=== PATIENT | female | born 1930 | race Caucasian/White ===

== ENCOUNTER 2019-01-29 20:57 | Inpatient (IN) | payer MEDICARE, OTHER ==
[~2019-01-29] VITALS: Ht 152.4 cm; Wt 75.7 kg
--- NOTE | 2019-01-29 21:10 | NUR ---
PT BIBRA COMPLAINING OF SOB/CHEST PAIN. PT HAS HX OF PANCREATIC CANCER AND RECIEVED AN OXYCODONE AROUND 1700. PT AXO4. RESPIRATIONS EVEN AND UNLABORED. PT STATES BEING DYPNIC AND POINTING AT CHEST SAYING, "PAIN." PT PUT ON THE MOLD UNLOADER AND PULSE OX. FAMILY AT BEDSIDE.
--- NOTE | 2019-01-29 21:50 | NUR ---
VENETIAN BLIND CLEANER AT BEDSIDE. LABS SENT.
[2019-01-29] MEDS ORDERED: ONDANSETRON HCL/PF 4 MG/2 ML VIAL IVP ONE (22:00)
[2019-01-29] MEDS ORDERED: KETOROLAC TROMETHAMINE INJ 30 MG/ML VIAL IV ONE (22:00)
[2019-01-29] MEDS ORDERED: IV NS 0.9% 500 ML BAG IV ONE (22:00)
--- NOTE | 2019-01-29 22:00 | NUR ---
XRAY AT BEDSIDE.
[2019-01-29] MEDS ORDERED: KETOROLAC TROMETHAMINE 15 MG/ML VIAL ONE (22:14)
[2019-01-29] MEDS ORDERED: ONDANSETRON HCL/PF 4 MG/2 ML VIAL ONE ×2 (22:14→22:53)
[2019-01-29 22:17] LABS: BASOPHILS # (AUTO) 0.1 /CMM (0.0-0.2); BASOPHILS % (AUTO) 0.8 % (0.0-2.0); EOSINOPHILS % (AUTO) 1.6 % (0.0-6.0); HEMATOCRIT 31 % (33-45); HEMOGLOBIN 9.6 g/dL (11.5-14.8); LYMPHOCYTES # (AUTO) 1.5 /CMM (0.8-4.8); LYMPHOCYTES % (AUTO) 13.3 % (20.0-44.0); MEAN CORPUSCULAR HGB CONC 31 g/dl (31.0-36.0); MEAN CORPUSCULAR VOLUME 79 fL (82-100); MONOCYTES # (AUTO) 0.8 /CMM (0.1-1.30); MONOCYTES % (AUTO) 7.1 % (2.0-12.0); NEUTROPHILS # (AUTO) 8.8 /CMM (1.8-8.9); NEUTROPHILS % (AUTO) 77.2 % (43.0-81.0); PLATELET COUNT (AUTO) 665 /CMM (150-450); RED BLOOD CELL COUNT(AUTO) 3.88 MIL/uL (4.0-5.2); WHITE BLOOD COUNT (AUTO) 11.4 K/uL (4.3-11.0)
[2019-01-29 22:34] LABS: CALCIUM, SERUM 8.5 mg/dL (8.5-10.1); CARBON DIOXIDE 19 mmol/L (21-32); CHLORIDE 99 mmol/L (98-107); CREATININE 1.4 mg/dL (0.6-1.3); GLUCOSE 111 mg/dL (74-106); POTASSIUM 5.1 mmol/L (3.5-5.1); SODIUM SERUM 131 mmol/L (136-145); UREA NITROGEN, BLOOD 36 mg/dL (7-18)
[2019-01-29 22:42] LABS: ALANINE AMINOTRANSFERASE 17 U/L (12-78); ALBUMIN 2.1 g/dL (3.4-5.0); ALKALINE PHOSPHATASE 76 U/L (46-116); ASPARTATE AMINOTRANSFERASE 110 U/L (15-37); BILIRUBIN,DIRECT 0.1 mg/dL (0.0-0.2); BILIRUBIN,TOTAL 0.3 mg/dL (0.2-1.0); LIPASE 94 U/L (73-393); TOTAL PROTEIN, SERUM 6.7 g/dL (6.4-8.2)
[2019-01-29] MEDS ORDERED: MORPHINE SULFATE INJ 4 MG/ML DISP.SYRIN ONE (22:54)
[2019-01-29] MEDS ORDERED: ONDANSETRON HCL/PF 4 MG/2 ML VIAL IV ONE (23:00)
[2019-01-29] MEDS ORDERED: MORPHINE SULFATE INJ 2 MG/ML DISP.SYRIN IV ONE (23:00)
--- NOTE | 2019-01-29 23:01 | NUR ---
PT TAKEN TO CT.
[2019-01-29] MEDS ORDERED: IOHEXOL-350 100 ML VIAL IV ONE (23:02)
--- NOTE | 2019-01-29 23:22 | NUR ---
PT RETURNED FROM CT.
--- NOTE | 2019-01-29 23:58 | NUR ---
PT RESTING IN BED COMFORTABLY, NAD NOTED. WILL CONTINUE TO MONITOR.
[2019-01-30 00:21] LABS: APPEARANCE,URINE CLEAR (CLEAR); BILIRUBIN,URINE NEGATIVE (NEGATIVE); BLOOD, URINE NEGATIVE Ery/uL (NEGATIVE); COLOR,URINE YELLOW (YELLOW); KETONES,URINE NEGATIVE (NEGATIVE); LEUKOCYTE ESTERASE ,URINE NEGATIVE (NEGATIVE); NITRITE, URINE NEGATIVE (NEGATIVE); PH,URINE 5.5 (5.0-8.0); PROTEIN,URINE NEGATIVE (NEGATIVE); UGLUCOSE NEGATIVE (NEGATIVE); UROBILINOGEN,URINE 0.2 EU/dL (0.2)
--- NOTE | 2019-01-30 00:35 | NUR ---
REPORT GIVEN TO ALICE ROMAN FOR TRISH.
[2019-01-30] MEDS ORDERED: OMEP20CA10 PO (00:49)
[2019-01-30] MEDS ORDERED: CEPH500C2 PO (00:49)
[2019-01-30] MEDS ORDERED: LOSA100T31 PO (00:49)
[2019-01-30] MEDS ORDERED: ASPI-1169 PO (00:49)
[2019-01-30] MEDS ORDERED: CLON0.1T PO (00:49)
[2019-01-30] MEDS ORDERED: Z GUARD REMEDY 2 OZ OINT TP PRN (01:00)
[2019-01-30 01:09] VITALS: BP 114/62
--- NOTE | 2019-01-30 02:09 | NUR ---
ADMISSION. RECEIVED THE PT FROM ER VIA GURNEY . PT IS AWAKE, FOLLOW COMMANDS. FOOD SPECIALIST SHOWING NSR, IV RT HAND 20G. SALINE LOCK. HOB ELEVATED. AFEBRILE. OXYGEN 2L VIA NASAL CANNULA. SAT 96%, NO ACUTE DISTRESS NOTED.
[2019-01-30] MEDS: IV NS 0.9% 1,000 ML IV PRN ×2 (02:17→21:48)
[2019-01-30 04:00] VITALS: BP_SYST 113; BP_SYST 118; BP_DIAS 56; BP_DIAS 58
[2019-01-30 06:10] LABS: CARBON DIOXIDE 22 mmol/L (21-32); CHLORIDE 105 mmol/L (98-107); CREATININE 1.2 mg/dL (0.6-1.3); GLUCOSE 81 mg/dL (74-106); POTASSIUM 4.9 mmol/L (3.5-5.1); SODIUM SERUM 137 mmol/L (136-145); UREA NITROGEN, BLOOD 35 mg/dL (7-18)
[2019-01-30 06:15] LABS: BASOPHILS # (AUTO) 0.1 /CMM (0.0-0.2); BASOPHILS % (AUTO) 0.7 % (0.0-2.0); EOSINOPHILS % (AUTO) 1.8 % (0.0-6.0); HEMATOCRIT 26 % (33-45); HEMOGLOBIN 8.2 g/dL (11.5-14.8); LYMPHOCYTES # (AUTO) 1.2 /CMM (0.8-4.8); LYMPHOCYTES % (AUTO) 15.1 % (20.0-44.0); MEAN CORPUSCULAR HGB CONC 32 g/dl (31.0-36.0); MEAN CORPUSCULAR VOLUME 79 fL (82-100); MONOCYTES # (AUTO) 0.7 /CMM (0.1-1.30); MONOCYTES % (AUTO) 8.5 % (2.0-12.0); NEUTROPHILS % (AUTO) 73.9 % (43.0-81.0); PLATELET COUNT (AUTO) 562 /CMM (150-450); RED BLOOD CELL COUNT(AUTO) 3.28 MIL/uL (4.0-5.2); WHITE BLOOD COUNT (AUTO) 8.2 K/uL (4.3-11.0)
[2019-01-30 06:16] LABS: ALANINE AMINOTRANSFERASE 14 U/L (12-78); ALBUMIN 1.8 g/dL (3.4-5.0); ALKALINE PHOSPHATASE 64 U/L (46-116); ASPARTATE AMINOTRANSFERASE 98 U/L (15-37); BILIRUBIN,DIRECT 0.1 mg/dL (0.0-0.2); BILIRUBIN,TOTAL 0.3 mg/dL (0.2-1.0); TOTAL PROTEIN, SERUM 5.8 g/dL (6.4-8.2)
[2019-01-30 07:24] LABS: CHOLESTEROL 126 mg/dL (<200); HDL CHOLESTEROL 12 mg/dL (40-60); LDL 82 mg/dL (0-99); THYROID STIMULATING HORMONE 1.729 uIU/mL (0.358-3.74); TRIGLYCERIDES 189 mg/dL (30-150)
[2019-01-30 08:00] VITALS: BP 123/63
[2019-01-30] MEDS ORDERED: SENN-168 PO (08:00)
[2019-01-30] MEDS ORDERED: HYDR-4076 PO (08:00)
[2019-01-30] MEDS ORDERED: DICL100G16 TP (08:00)
[2019-01-30] MEDS ORDERED: MAGN400O6 PO (08:00)
[2019-01-30] MEDS ORDERED: HYDR-4384 PO (08:00)
[2019-01-30] MEDS ORDERED: NITR0.4T48 SL (08:00)
[2019-01-30] MEDS ORDERED: FENO145T35 PO (08:00)
[2019-01-30] MEDS ORDERED: FERR325T23 PO (08:00)
[2019-01-30] MEDS ORDERED: ACET-868 PO (08:00)
[2019-01-30] MEDS ORDERED: LACT-58 PO (08:00)
[2019-01-30] MEDS ORDERED: CLON1PAT TD (08:00)
[2019-01-30] MEDS ORDERED: OXYC10TA59 PO (08:00)
[2019-01-30] MEDS ORDERED: NIFE60TA83 PO (08:00)
[2019-01-30] MEDS ORDERED: SIME80TA15 PO (08:00)
[2019-01-30] MEDS ORDERED: ACID1TAB12 PO (08:00)
[2019-01-30] MEDS ORDERED: BISA10SU8 RC (08:00)
[2019-01-30] MEDS ORDERED: EPOE1VIA7 SQ (08:00)
[2019-01-30] MEDS ORDERED: METO25TA20 PO (08:00)
[2019-01-30] MEDS ORDERED: TEMA7.5C PO (08:00)
[2019-01-30] MEDS ORDERED: MAGN400T26 PO (08:00)
[2019-01-30] MEDS: HYDROCODONE/APAP 5/325MG 1 EACH TABLET PO PRN ×3 (10:00→21:46)
[2019-01-30 16:00] VITALS: BP 117/53
[2019-01-30 20:00] VITALS: BP 153/64
--- NOTE | 2019-01-30 20:00 | NUR ---
RN INITIAL NOTES RECEIVED PT RESTING IN BED AWAKE, FOLLOW COMMANDS. PT A&OX2-3. PT SPEAKS PARAGUAYAN. IV RT HAND 20G WITH 0.9 NS @50. HOB ELEVATED. PT ON OXYGEN 2L VIA NASAL CANNULA. SAT 96%, NO ACUTE DISTRESS NOTED. FAMILY AT BED SIDE. WILL CONT TO MONITOR.
[2019-01-30] MEDS: MAG HYDROX/AL HYDROX/SIMETH 30 ML UDC PO PRN (21:47)
[2019-01-30] MEDS: MAGNESIUM HYDROXIDE 30 ML UDC PO PRN (23:34)
[2019-01-31 04:00] VITALS: BP 157/80
[2019-01-31] MEDS: HYDROCODONE/APAP 5/325MG 1 EACH TABLET PO PRN ×4 (04:05→20:32)
--- NOTE | 2019-01-31 06:26 | NUR ---
RN CLOSING NOTES NO CHANGE IN PTS CONDITION OVER NIGHT. PT RESTING IN BED AWAKE, FOLLOW COMMANDS. PT A&OX2-3. PT SPEAKS TAJIK. IV RT HAND 20G WITH 0.9 NS @50. HOB ELEVATED. PT ON OXYGEN 2L VIA NASAL CANNULA. SAT 96%, NO ACUTE DISTRESS NOTED. WILL ENDORSE TO AM RN.
[2019-01-31 06:27] LABS: BASOPHILS # (AUTO) 0.1 /CMM (0.0-0.2); EOSINOPHILS % (AUTO) 3.1 % (0.0-6.0); HEMATOCRIT 24 % (33-45); HEMOGLOBIN 7.9 g/dL (11.5-14.8); LYMPHOCYTES % (AUTO) 11.9 % (20.0-44.0); MEAN CORPUSCULAR HGB CONC 32 g/dl (31.0-36.0); MEAN CORPUSCULAR VOLUME 79 fL (82-100); MONOCYTES # (AUTO) 0.8 /CMM (0.1-1.30); MONOCYTES % (AUTO) 9.1 % (2.0-12.0); NEUTROPHILS # (AUTO) 6.4 /CMM (1.8-8.9); NEUTROPHILS % (AUTO) 74.9 % (43.0-81.0); PLATELET COUNT (AUTO) 527 /CMM (150-450); WHITE BLOOD COUNT (AUTO) 8.5 K/uL (4.3-11.0)
[2019-01-31 07:03] LABS: CALCIUM, SERUM 8.1 mg/dL (8.5-10.1); CARBON DIOXIDE 22 mmol/L (21-32); CHLORIDE 105 mmol/L (98-107); CREATININE 1.2 mg/dL (0.6-1.3); GLUCOSE 84 mg/dL (74-106); MAGNESIUM 2.2 mg/dL (1.8-2.4); PHOSPHORUS 3.8 mg/dL (2.5-4.9); POTASSIUM 4.8 mmol/L (3.5-5.1); SODIUM SERUM 139 mmol/L (136-145); UREA NITROGEN, BLOOD 30 mg/dL (7-18)
[2019-01-31 08:00] VITALS: BP 160/71
--- NOTE | 2019-01-31 08:00 | NUR ---
MS1/RN AM SHIFT INITIAL NOTES RECEIVED PT AWAKE SITTING IN BED. PT A/O 2-3 SWEDISH SPEAKING, THROUGH AN PYRIDINE OPERATOR PT COMPLAINING OF GENERALIZED PAIN RATED 9/10 WILL GIVE PAIN MEDICATION ORDERED. PT ON 2L O2 VIA N/C SATURATING @ 98%, LUNG SOUNDS CLEAR, RESPIRATIONS EVEN AND UNLABORED. WITH ON GOING IV INFUSION OF NS @ 50CC/HR, IV SITE PATENT WITH NO S/S OF INFECTION. SCHEDULED AM MEDS TO BE GIVEN. CL WITHIN REACHED AND SAFETY MAINTAINED. ON GOING MONITORING.
[2019-01-31] MEDS: MAGNESIUM HYDROXIDE 30 ML UDC PO PRN ×2 (09:41→20:41)
--- NOTE | 2019-01-31 10:11 | NUR ---
MS1/RN ROUNDS - DR. ESTEBAN UPDATED PT'S CONDITION. PT SEEN & EXAMINED BY DR. ESTEBAN, WITH VERBAL ORDERS FOR PRN CONSTIPATION. MIRALAX AND DULCOLAX. NOTED AND CARRIED. ON GOING MONITORING.
[2019-01-31] MEDS ORDERED: POLYETHYLENE GLYCOL 3350 17 GM POWD.PACK PO PRN (10:30)
[2019-01-31] MEDS: BISACODYL SUPP (10 MG) 10 MG/SUPP.RECT SUPP.RECT RC PRN (10:48)
[2019-01-31] MEDS: AMLODIPINE BESYLATE 5 MG TABLET PO SCH (13:09)
[2019-01-31 16:00] VITALS: BP 164/70
--- NOTE | 2019-01-31 17:00 | NUR ---
MS1/RN PM ROUNDS PM CARE PROVIDED. NO CHANGE OF CONDITION. MONITORING.
[2019-01-31] MEDS: IV NS 0.9% 1,000 ML IV PRN (17:16)
[2019-01-31] MEDS: SIMETHICONE 80 MG TAB.CHEW PO PRN (17:18)
[2019-01-31] MEDS: ENSURE ENLIVE 237 ML LIQUID (VANILLA) PO SCH (18:49)
--- NOTE | 2019-01-31 19:20 | NUR ---
RN M/S NOTE PT IS RESTING IN BED AOX2-3, SPEECH CLEAR, ON 2L O2 VIA NC, NO S/SX OF RESPIRATORY OR CARDIAC DISTRESS, RIGHT HAND#20G WITH NS AT 50ML/HR, SITE IS CLEAN AND DRY, DRESSING INTACT, PATENT FLUSHING WELL, SAFETY MAINTAINED AT ALL TIMES, BED IN LOW LOCKED POSITION, CALL LIGHT WITHIN REACH, WILL CONTINUE TO MONITOR FOR ANY ACUTE CHANGES.
--- NOTE | 2019-01-31 19:55 | NUR ---
MS1/RN AM SHIFT END NOTES ALL NEEDS MET. NO ACUTE CHANGE OF CONDITION NOTED DURING THE SHIFT. PT ENDORSED TO PM NURSE TO CONTINUE CARE. ALSO ENDORSED TO GIVE PRN NORCO AND SIMETHICONE WHEN DUE PER FAMILY REQUEST. CL WITHIN REACHED AND SAFETY MAINTAINED.
[2019-01-31 20:00] VITALS: BP 150/62
[2019-01-31] MEDS: MAG HYDROX/AL HYDROX/SIMETH 30 ML UDC PO PRN (20:41)
[2019-01-31] MEDS ORDERED: MORPHINE SULFATE INJ 2 MG/ML DISP.SYRIN IV ONE (21:05)
--- NOTE | 2019-01-31 21:05 | NUR ---
RN M/S NOTE PATIENT IS C/O ABDOMINAL PAIN, CALL TO DR WEST FOR PAIN MED ORDER PER FAMILY REQUEST OF MORPHINE, NEW ORDER FOR MORPHINE 2MG IV ONE TIME ONLY
[2019-01-31] MEDS ORDERED: HYDROMORPHONE 1 MG/1 ML DISP.SYRIN IV ONE (23:40)
--- NOTE | 2019-01-31 23:41 | NUR ---
RN M/S NOTE PT CONTINUES TO COMPLAIN OF ABDOMINAL PAIN CALL TO DR WEST FOR PAIN MED ORDER, NEW ORDER FOR DILAUDID 1MG IV ONE TIME, WILL CONTINUE TO MONITOR.
[2019-02-01] MEDS: HYDROCODONE/APAP 5/325MG 1 EACH TABLET PO PRN ×2 (01:36→05:34)
[2019-02-01] MEDS: ACETAMINOPHEN 325 MG TABLET PO PRN ×2 (02:33→11:56)
[2019-02-01 04:00] VITALS: BP 120/42
[2019-02-01] MEDS: SIMETHICONE 80 MG TAB.CHEW PO PRN ×3 (04:21→18:05)
[2019-02-01] MEDS: ONDANSETRON HCL/PF 4 MG/2 ML VIAL IVP PRN ×2 (04:21→20:09)
--- NOTE | 2019-02-01 05:38 | NUR ---
PT STILL COMPLAINS OF ABDOMINAL PAIN WITH NO RELIEF PAIN AFTER MEDICATION ORDERED. SPOKE TO JIMMY WEST HYDRO STATION SUPERVISOR, WITH ORDER TO CHANGE NORCO 5/325 PO TO NORCO 10/325 PO PRN Q4HRS FOR PAIN . DAUGHTER MADE AWARE.
[2019-02-01] MEDS: HYDROCODONE/APAP 10/325MG 1 EA TABLET PO PRN ×5 (05:53→18:49)
[2019-02-01 08:00] VITALS: BP 131/67
--- NOTE | 2019-02-01 08:00 | NUR ---
MS1/RN AM SHIFT INITIAL NOTES RECEIVED PT ASLEEP SITTING IN BED, AROUSEABLE. PT A/O 2-3 CITIZEN OF [place] SPEAKING, NO COMPLAINT OF PAIN AT THIS TIME. ON 2L O2 VIA N/C SATURATING @ 97%. RESPIRATIONS EVEN & UNLABORED, LUNG SOUNDS CLEAR. WITH ON GOING IV INFUSION OF NS @ 50CC/HR, IV SITE PATENT WITH NO S/S OF INFECTION. SCHEDULED AM MEDS TO BE GIVEN. CL WITHIN REACHED AND SAFETY MAINTAINED. ON GOING MONITORING.
[2019-02-01] MEDS: ENSURE ENLIVE 237 ML LIQUID (VANILLA) PO SCH ×3 (08:10→18:23)
[2019-02-01] MEDS: AMLODIPINE BESYLATE 5 MG TABLET PO SCH (08:14)
[2019-02-01] MEDS: BISACODYL SUPP (10 MG) 10 MG/SUPP.RECT SUPP.RECT RC PRN (10:12)
[2019-02-01] MEDS: MAGNESIUM HYDROXIDE 30 ML UDC PO PRN (10:12)
[2019-02-01] MEDS ORDERED: NITROGLYCERIN 0.4 MG/TAB BOTTLE SL PRN (15:00)
[2019-02-01] MEDS ORDERED: SIMETHICONE 80 MG TAB.CHEW PO PRN (15:00)
[2019-02-01] MEDS ORDERED: BISACODYL SUPP (10 MG) 10 MG/SUPP.RECT SUPP.RECT RC PRN (15:00)
[2019-02-01 16:00] VITALS: BP 135/60
--- NOTE | 2019-02-01 16:00 | NUR ---
MS1/RN ROUNDS - [facility] UPDATED PT'S CONDITION, PT SEEN & EXAMINED BY DR. CANALES, NO NEW ORDER RECEIVED AT THIS TIME. MONITORING.
[2019-02-01] MEDS: IV NS 0.9% 1,000 ML IV PRN (16:11)
[2019-02-01] MEDS: FERROUS SULFATE (325 MG) 325 MG/TAB TABLET PO SCH (16:57)
[2019-02-01] MEDS: hydrALAZINE HCL 25 MG TABLET PO SCH (16:57)
[2019-02-01] MEDS: METOPROLOL TARTRATE 25 MG TABLET PO SCH (16:57)
[2019-02-01] MEDS: SENNOSIDES 8.6 MG TABLET PO SCH (16:57)
--- NOTE | 2019-02-01 18:49 | NUR ---
MS1/RN NORCO - 2X PT GIVEN ANOTHER DOSE OF PRN NORCO. PT VOMITED THE PREVIOUS MEDICATION, PHARMACY MADE AWARE.
--- NOTE | 2019-02-01 19:00 | NUR ---
RN M/S NOTE PT IS RESTING WITH HOB ELEVATED, IN BED AOX2-3, SPEECH CLEAR, ON 2L O2 VIA NC, NO S/SX OF RESPIRATORY OR CARDIAC DISTRESS, RIGHT HAND#20G WITH NS AT 50ML/HR, SITE IS CLEAN AND DRY, DRESSING INTACT, PATENT FLUSHING WELL, SAFETY MAINTAINED AT ALL TIMES, BED IN LOW LOCKED POSITION, CALL LIGHT WITHIN REACH, WILL CONTINUE TO MONITOR FOR ANY ACUTE CHANGES.
--- NOTE | 2019-02-01 19:50 | NUR ---
MS1/RN FENTANYL FORM SPOKE TO DR. CANALES VIA PHONE NOTIFIED HIM THAT A FENTANYL FORM IS NEEDED TO BE COMPLETED PER PHARMACY TO RELEASE THE MEDICATION. DR. CANALES IS ON LOCATION WHERE THE FORM CANNOT BE FAXED, BUT INFORMED ME THAT HE WILL BE IN HIS [facility] OFFICE TOMORROW. [facility] DIRECT PHOHE NUMBER AND FAX NUMBER GIVEN TO , MD WILL CONTACT THE [facility] TO INFORM US OF THE FAX NUMBER TO WHERE THE FORM COULD BE FAXED, COMPLETED AND RETURNED FOR PROCESSING. CHARGE NURSES (AM & PM) MADE AWARE, WELL BRUCE FROM PHARMACY.
--- NOTE | 2019-02-01 19:59 | NUR ---
MS1/RN AM SHIFT END NOTES ALL NEEDS MET. NO ACUTE CHANGE OF CONDITION NOTED DURING THE SHIFT. PT ENDORSED TO PM NURSE TO CONTINUE CARE. CL WITHIN REACHED AND SAFETY MAINTAINED.
[2019-02-01 20:00] VITALS: BP 142/78
[2019-02-01] MEDS ORDERED: FENTANYL TD PATCH (12 MCG/HR) 12 MCG/HR PATCH.TD72 TD ONE (20:00)
--- NOTE | 2019-02-01 20:01 | NUR ---
RN M/S NOTE CALL TO BRUCE FROM PHARMACY TO CONFIRM PT TO RECEIVE FENTANYL PATCH AT 1999, STATES SPOKE WITH MD AND CONFIRMED DOSE, WILL ADMINISTER MEDICATION AND MONITOR S/SX OF OPIOID OVERDOSE.
[2019-02-01] MEDS ORDERED: oxyCODONE HCL SR 10MG TAB.SR.12H PO SCH (21:00)
[2019-02-01] MEDS: TEMAZEPAM 7.5 MG CAPSULE PO SCH (21:38)
[2019-02-02] MEDS: HYDROCODONE/APAP 10/325MG 1 EA TABLET PO PRN ×5 (01:19→19:55)
[2019-02-02 04:00] VITALS: BP 131/53
--- NOTE | 2019-02-02 07:05 | NUR ---
MS RN OPENING NOTES RECEIVED PT LYING ON BED,ALERT/ORIENTED X2.ON NC 2 L O2 CONTINUOUSLY.NO SOB AND ACUTE DISTRESS NOTED.BED REST,CAN FOLLOW COMMANDS AND CAN CHANGE THE POSITION.IV LINE IS ON RIGHT FA G22,SITE IS CLEAN,DRY AND INTACT.NO INFILTRATION NOTED.BED IS IN LOW POSITION AND LOCKED,CALL LIGHT IS WITHIN REACH.WILL CONTINUE TO MONITOR THE PT CLOSELY.
[2019-02-02 07:36] LABS: BASOPHILS # (AUTO) 0.1 /CMM (0.0-0.2); BASOPHILS % (AUTO) 1.2 % (0.0-2.0); EOSINOPHILS % (AUTO) 2.5 % (0.0-6.0); HEMATOCRIT 23 % (33-45); HEMOGLOBIN 7.3 g/dL (11.5-14.8); LYMPHOCYTES % (AUTO) 10.8 % (20.0-44.0); MEAN CORPUSCULAR HGB CONC 32 g/dl (31.0-36.0); MEAN CORPUSCULAR VOLUME 79 fL (82-100); MONOCYTES # (AUTO) 0.8 /CMM (0.1-1.30); MONOCYTES % (AUTO) 8.8 % (2.0-12.0); NEUTROPHILS # (AUTO) 7.3 /CMM (1.8-8.9); NEUTROPHILS % (AUTO) 76.7 % (43.0-81.0); PLATELET COUNT (AUTO) 521 /CMM (150-450); WHITE BLOOD COUNT (AUTO) 9.5 K/uL (4.3-11.0)
[2019-02-02 07:44] LABS: CALCIUM, SERUM 8.4 mg/dL (8.5-10.1); CARBON DIOXIDE 23 mmol/L (21-32); CHLORIDE 109 mmol/L (98-107); GLUCOSE 81 mg/dL (74-106); POTASSIUM 5.4 mmol/L (3.5-5.1); SODIUM SERUM 141 mmol/L (136-145); UREA NITROGEN, BLOOD 42 mg/dL (7-18)
[2019-02-02 08:00] VITALS: BP 124/59
[2019-02-02] MEDS: FENOFIBRATE NANOCRYS (145 MG) 145 MG TABLET PO SCH (08:39)
[2019-02-02] MEDS: FERROUS SULFATE (325 MG) 325 MG/TAB TABLET PO SCH ×2 (08:39→17:16)
[2019-02-02] MEDS: ACIDOPHILUS/BULGARICUS 1 EACH TAB.CHEW PO SCH (08:39)
[2019-02-02] MEDS: ASPIRIN 81 MG TAB.CHEW PO SCH (08:40)
[2019-02-02] MEDS: LOSARTAN POTASSIUM 50 MG TABLET PO SCH (08:40)
[2019-02-02] MEDS: SIMETHICONE 80 MG TAB.CHEW PO PRN (08:40)
[2019-02-02] MEDS: SENNOSIDES 8.6 MG TABLET PO SCH ×2 (08:40→17:00)
[2019-02-02] MEDS: METOPROLOL TARTRATE 25 MG TABLET PO SCH ×2 (08:41→17:16)
[2019-02-02] MEDS: AMLODIPINE BESYLATE 5 MG TABLET PO SCH (08:41)
[2019-02-02] MEDS: ENSURE ENLIVE 237 ML LIQUID (VANILLA) PO SCH ×3 (08:41→17:00)
[2019-02-02] MEDS: hydrALAZINE HCL 25 MG TABLET PO SCH ×3 (08:48→17:16)
[2019-02-02] MEDS: ONDANSETRON HCL/PF 4 MG/2 ML VIAL IVP PRN (12:30)
--- NOTE | 2019-02-02 12:34 | NUR ---
RN NOTE: JIMMY LYNN WAS INFORMED THAT THE PATIENT WAS NOTED WITH BLACK TARRY STOOL. DIRECTOR INFORMATICS GAVE AN ORDER FOR OCCULT BLOOD STOOL. ORDER, NOTED AND CARRIED OUT.
--- NOTE | 2019-02-02 12:37 | NUR ---
RN NOTE: SPOKE WITH JIMMY LYNN THAT DR. IRENE PAZ WAS AWARE OF THE PATIENT'S ADMISSION TO THE HOSPITAL. PER MD, SHE WAS CURRENTLY OUT OF TOWN AND CAN BE DIRECTLY CONTACTED BY THE HOSPITALIST.
[2019-02-02] MEDS: IV NS 0.9% 1,000 ML IV PRN (13:53)
[2019-02-02] MEDS ORDERED: LACTOSE FREE FOOD PO SCH (14:00)
[2019-02-02] MEDS ORDERED: FUROSEMIDE 40 MG/4 ML VIAL IV ONE (14:00)
--- NOTE | 2019-02-02 14:50 | NUR ---
RN NOTE: PATIENT'S DAUGHTER AND LEAH TRANSIT PLANNING DIRECTOR PRESENT AT THE BEDSIDE AND ACCORDING TO THE DAUGHTER HER MOTHER WANTED TO THROW UP. PER LEAH, TRANSIT PLANNING DIRECTOR GIVE A 1 TIME DOSE OF THE ZOFRAN. ORDER, NOTED AND CARRIED OUT.
[2019-02-02] MEDS ORDERED: ONDANSETRON HCL/PF 4 MG/2 ML VIAL IV ONE (15:00)
--- NOTE | 2019-02-02 15:15 | NUR ---
MS RN NOTES IV SITE ON RIGHT FA G22 NOTED WITH INFILTRATION AND SWELLING,DISCONTINUED AND APPLIED ICE PACK AND START NEW IV LINE ON LEFT HAND G24,SITE IS CLEAN,DRY AND INTACT AND GOOD BLOOD RETURN AND RESTART IV 0.9%NS @50ML/HR.
[2019-02-02 16:00] VITALS: BP 113/60
--- NOTE | 2019-02-02 16:15 | NUR ---
RN NOTE: SPOKE WITH DR. MAHENDRA CANALES (PAIN MANAGEMENT) AND HE WAS INFORMED THAT THE PATIENT WAS NOT GETTING RELIEVED WITH THE CURRENT DOSAGE OF HER FENTANYL PATCH AND THE BREAKTHROUGH PAIN MEDICATION. PER MD, HE WILL SEE THE PATIENT BY TOMORROW AND ADJUST THE DOSAGES OF PAIN MEDICATION. CALLED AND SPOKE WITH MARILOU, DAUGHTER AND SHE WAS INFORMED ABOUT IT. PATIENT'S DAUGHTER, MARILOU WAS CONTENTED FOR THE UPDATES.
[2019-02-02 16:27] LABS: OCCULT BLOOD STOOL POSITIVE (NEGATIVE)
--- NOTE | 2019-02-02 16:52 | NUR ---
RN NOTE: INFORMED JIMMY LYNN REGARDING THE OCCULT BLOOD STOOL RESULT. PER JIMMY LYNN HE ORDERED A GI CONSULT FOR THE PATIENT. ORDER, NOTED AND CARRIED OUT. CALLED AND SPOKE WITH MARILOU, BRIANNA ABOUT IT AND ACCORDING TO HER SHE WILL NOT LET THE PATIENT TO UNDERGO COLONOSCOPY BECAUSE SHE JUST HAD A RECENT COLONOSCOPY AT [facility] ON 12/18/18 AND AT [facility] ION 01/13 OR 01/14/19. PATIENT'S DAUGHTER MARILOU WANTED TO SPEAK WITH JIMMY LYNN ABOUT IT SO SHE CAN EXPLAIN FURTHER.
[2019-02-02] MEDS: ACETAMINOPHEN 325 MG TABLET PO PRN (17:16)
[2019-02-02] MEDS: MAG HYDROX/AL HYDROX/SIMETH 30 ML UDC PO PRN (17:55)
--- NOTE | 2019-02-02 18:20 | NUR ---
RN NOTE: CALLED AND SPOKE WITH BRIANNA ZAMARRIPA THAT JIMMY LYNN WAS INFORMED ABOUT THE REQUEST TO SPEAK WITH HIM AGAIN, BUT ACCORDING TO DIE SINKER, HE ALREADY LEFT THE HOSPITAL, BUT RECEIVED THE CELLPHONE NUMBER OF BRIANNA ZAMARRIPA AND HE WILL SPEAK WITH HER AGAIN BY TOMORROW. BRIANNA ZAMARRIPA UNDERSTOOD AND AGREED.
--- NOTE | 2019-02-02 18:30 | NUR ---
MS RN NOTES ORDERED TO GIVE DILAUDID 0.5MG Q3HRS PRN FOR SEVERE PAIN.NEW ORDERS NOTED AND CARRIED OUT.
--- NOTE | 2019-02-02 19:00 | NUR ---
MS RN CLOSING NOTES PT IS LYING ON BED,ALERT/ORIENTED X2.ON NC 2 L O2 CONTINUOUSLY.NO SOB AND ACUTE DISTRESS NOTED.BED REST,CAN FOLLOW COMMANDS AND CAN CHANGE THE POSITION.IV LINE IS ON LEFT HAND G24 SITE IS CLEAN,DRY AND INTACT.NO INFILTRATION NOTED.BED IS IN LOW POSITION AND LOCKED,CALL LIGHT IS WITHIN REACH.CONTINUE TO GIVE PAIN MEDS,ENDORSED TO FIRE CONTROL ASSISTANT RN FOR TRISH AND MONITOR THE PAIN STATUS.
[2019-02-02] MEDS: HYDROMORPHONE 1 MG/1 ML DISP.SYRIN IV PRN ×2 (19:06→21:45)
--- NOTE | 2019-02-02 19:15 | NUR ---
MS RN NOTE PATIENT RECEIVED IN BED SLEEP BUT EASILY AROUSABLE. PATIENT A/O X 2. PATIENT HAS NO C/O OF AT THIS TIME. PATIENT IS UPRIGHT IN BED WITH PATIENT IV ACESS NO S/S OF INFILTRATION. PATIENT DENIES SOB/. RN WILL CONTINUE TO MONITOR.
--- NOTE | 2019-02-02 20:20 | NUR ---
MS RN NOTE PATIENT DAUGHTER CALLED ON THE PHONE TO CONFIRM NORCO ADMINISTRATION. EXPLAINED TO DAUGHTER NORCO WAS GIVEN AT 1442 AND DILAUDID WAS GIVEN 1906. DAUGHTER UPSET NORCO WAS NOT GIVEN AT 1842. MEKA JUARZE EXPLAINED TO DAUGHTER THAT DILAUDID WAS GIVEN IN STEAD OF NORCO, BECAUSE IT IS MORE EFFECTIVE AT MANAGING HER PAIN AND STRONGER. DAUGHTER STATES, "I DONT CARE ABOUT THE DILAUDID." RN AND MEKA EXPLAINED TO PATIENT THAT WE CAN NOT SPEAK FOR DAY SHIFT THAT FOR THIS SHIFT SHE WILL GET HER MEDS ON TIME. NORCO WAS GIVEN AT 1955, NEXT AGREED UPON DOSE IS 0000, 0400, 0800. PER DAUGHTER REQUEST IF SHE IS SLEEPING DO NOT WAKE HER UP TO GIVE HER NORCO, BUT ONCE SHE WAKES AND C/O PAIN GIVE PAIN MEDICATION.
[2019-02-02] MEDS: TEMAZEPAM 7.5 MG CAPSULE PO SCH (21:45)
[2019-02-03] VITALS (11 sets, daily range): BP systolic 112–142; BP diastolic 46–107
[2019-02-03] MEDS: HYDROCODONE/APAP 10/325MG 1 EA TABLET PO PRN ×6 (01:44→22:31)
--- NOTE | 2019-02-03 01:45 | NUR ---
MS RN NOTE PATIENT WAS SLEEPING AT MIDNIGHT, PER DAUGHTER REQUEST DID NOT WAKE PATIENT. PATIENT AWOKE AT 0145 WITH A VOID AND BOWEL MOVEMENT C/O PAIN. PATIENT WAS BATHED AND CHANGED AND NORCO WAS GIVEN.
[2019-02-03] MEDS: HYDROMORPHONE 1 MG/1 ML DISP.SYRIN IV PRN (02:48)
--- NOTE | 2019-02-03 06:41 | NUR ---
MS RN NOTE NO ACUTE CHANGES THROUGH THE SHIFT, NO S/S OF DISTRESS, ALL CARE RENDERED, ALL NEEDS MET. SAFETY PRECAUTIONS IN PLACE, CALL LIGHT IN HAND. WILL ENDORSE TO AM POC FOR TRISH.
--- NOTE | 2019-02-03 07:00 | NUR ---
MS RN NOTE PATIENT RECEIVED IN BED SLEEP BUT EASILY AROUSABLE. PATIENT A/O X 2. PATIENT HAS NO C/O OF AT THIS TIME. PATIENT IS UPRIGHT IN BED WITH PATIENT IV ACCESS NO S/S OF INFILTRATION. IV SITE C,D,I. PATIENT DENIES SOB/. RN WILL CONTINUE TO MONITOR.
--- NOTE | 2019-02-03 08:00 | NUR ---
MS RN NOTES PT REFUSED NASAL CANNULA. SATURATION 94%. NO SOB NOTED. WILL CONT TO MONITOR.
[2019-02-03 08:02] LABS: CALCIUM, SERUM 8.4 mg/dL (8.5-10.1); CARBON DIOXIDE 22 mmol/L (21-32); CHLORIDE 108 mmol/L (98-107); CREATININE 1.1 mg/dL (0.6-1.3); GLUCOSE 77 mg/dL (74-106); POTASSIUM 5.6 mmol/L (3.5-5.1); SODIUM SERUM 141 mmol/L (136-145); UREA NITROGEN, BLOOD 51 mg/dL (7-18)
[2019-02-03 08:07] LABS: BASOPHILS # (AUTO) 0.1 /CMM (0.0-0.2); BASOPHILS % (AUTO) 0.8 % (0.0-2.0); EOSINOPHILS % (AUTO) 2.3 % (0.0-6.0); HEMATOCRIT 25 % (33-45); HEMOGLOBIN 7.6 g/dL (11.5-14.8); LYMPHOCYTES % (AUTO) 11.5 % (20.0-44.0); MEAN CORPUSCULAR HGB CONC 31 g/dl (31.0-36.0); MEAN CORPUSCULAR VOLUME 81 fL (82-100); MONOCYTES # (AUTO) 0.8 /CMM (0.1-1.30); MONOCYTES % (AUTO) 9.1 % (2.0-12.0); NEUTROPHILS # (AUTO) 6.9 /CMM (1.8-8.9); NEUTROPHILS % (AUTO) 76.3 % (43.0-81.0); PLATELET COUNT (AUTO) 467 /CMM (150-450); RED BLOOD CELL COUNT(AUTO) 3.05 MIL/uL (4.0-5.2); WHITE BLOOD COUNT (AUTO) 9.1 K/uL (4.3-11.0)
[2019-02-03] MEDS ORDERED: ACETAMINOPHEN 325 MG TABLET PO PRN (09:00)
[2019-02-03] MEDS ORDERED: diphenhydrAMINE HCL 50 MG/ML VIAL IV PRN (09:00)
[2019-02-03] MEDS: SENNOSIDES 8.6 MG TABLET PO SCH ×2 (09:00→16:39)
[2019-02-03] MEDS: LOSARTAN POTASSIUM 50 MG TABLET PO SCH (09:59)
[2019-02-03] MEDS: ACIDOPHILUS/BULGARICUS 1 EACH TAB.CHEW PO SCH (09:59)
[2019-02-03] MEDS: FENOFIBRATE NANOCRYS (145 MG) 145 MG TABLET PO SCH (10:00)
[2019-02-03] MEDS: hydrALAZINE HCL 25 MG TABLET PO SCH ×3 (10:00→16:39)
[2019-02-03] MEDS: FERROUS SULFATE (325 MG) 325 MG/TAB TABLET PO SCH ×2 (10:00→16:37)
[2019-02-03] MEDS: METOPROLOL TARTRATE 25 MG TABLET PO SCH ×2 (10:01→16:38)
[2019-02-03] MEDS: ASPIRIN 81 MG TAB.CHEW PO SCH (10:02)
[2019-02-03] MEDS: AMLODIPINE BESYLATE 5 MG TABLET PO SCH (10:06)
[2019-02-03] MEDS: ONDANSETRON HCL/PF 4 MG/2 ML VIAL IVP PRN ×2 (10:06→18:47)
[2019-02-03] MEDS: ENSURE ENLIVE 237 ML LIQUID (VANILLA) PO SCH ×3 (10:15→17:00)
[2019-02-03] MEDS: IV NS 0.9% 1,000 ML IV PRN (11:45)
[2019-02-03] MEDS ORDERED: SODIUM POLYSTYRENE SULFONATE 15 G/60 ML BOTTLE PO ONE (12:00)
[2019-02-03] MEDS: SIMETHICONE 80 MG TAB.CHEW PO PRN ×2 (12:58→18:19)
[2019-02-03] MEDS ORDERED: FUROSEMIDE 40 MG/4 ML VIAL IV ONE (14:15)
[2019-02-03] MEDS ORDERED: CLONIDINE HCL 0.1MG/24H PTWK 1 EA PATCH TD SCH (15:00)
[2019-02-03] MEDS ORDERED: EPOETIN ALFA (10,000 UNIT) 10,000 UNIT/ML VIAL SQ SCH (15:00)
[2019-02-03] MEDS: ACETAMINOPHEN 325 MG TABLET PO PRN (16:28)
[2019-02-03] MEDS ORDERED: PHENYLEPHRINE/SHK LV/MO/PET,WH 30 GM TUBE RC PRN (19:00)
--- NOTE | 2019-02-03 19:15 | NUR ---
MS RN NOTE PATIENT IN BED AWAKE, A/OX3, FAMILY MEMBERS AT THE BEDSIDE. PATIENT HAS C/O OF PAIN 3/10 AT THIS TIME. PATIENT IV ACCESS NO S/S OF INFILTRATION. IV SITE C,D,I WITH 1UNIT OF RBC TRANSFUSING AT THIS TIME PATIENT DENIES ANY SOB. VITAL SIGNS WNL. ALL MD ORDERS ATTENDED. ENDORSED TO CUTLERY GRINDER NURSE FOR TRISH.
--- NOTE | 2019-02-03 19:48 | NUR ---
SANJIV RN NOTE PATIENT RECEIVED IN BED AWAKE, A/OX4, FAMILY MEMBERS AT THE BEDSIDE.PATIENT HAS C/O OF PAIN 4/10 AT THIS TIME. PATIENT IS ON HER LEFT SIDE IN BED WITH PATIENT IV ACCESS NO S/S OF INFILTRATION. IV SITE C,D,I WITH 1UNIT OF RBC TRANSFUSING AT THIS TIME PATIENT DENIES ANY SOB AT THIS TIME. WILL CONTINUE TO MONITOR PATIENT CLOSELY. Addendum: 02/03/19 at 2025 by JOSE ALEJANDRO MCFARLAND RN PATIENT IS GETTING BLOOD TRANSFUSION OF RBC WITH BLOOD DRIPPING IN THE EMPTY CHAMBER. CHARGE NURSE WILCOX NOTIFIED AND IT IS HOW IT'S SPOUSE TO BE BY CLINICAL RN.WILL CONTINUE TO MONITOR PATIENT. Addendum: 02/03/19 at 2026 by JOSE ALEJANDRO MCFARLAND RN CHAMBER HAS BEEN FELLED BY MIHAELA WILCOX.
--- NOTE | 2019-02-03 20:35 | NUR ---
RN NOTES BLOOD TRANSFUSION HAS BEEN DONE. PATIENT IS A/A/OX4, NO SOB, V/S ARE WNL. WILL CONTINUE TO MONITOR PATIENT CLOSELY.
[2019-02-03] MEDS: TEMAZEPAM 7.5 MG CAPSULE PO SCH (22:30)
[2019-02-03] MEDS: BISACODYL SUPP (10 MG) 10 MG/SUPP.RECT SUPP.RECT RC PRN (22:58)
[2019-02-04] MEDS: HYDROCODONE/APAP 10/325MG 1 EA TABLET PO PRN ×3 (03:22→13:33)
[2019-02-04 04:00] VITALS: BP 137/68
[2019-02-04] MEDS: HYDROMORPHONE 1 MG/1 ML DISP.SYRIN IV PRN ×3 (04:06→13:14)
--- NOTE | 2019-02-04 06:15 | NUR ---
RN NOTES PATIENT IS SLEEPING IN THE BED, WITHOUT DISTRESS, NO SOB AT THIS TIME. WILL ENDORSE TO AM SHIFT RN FOR ELECTRICAL WIRER.
[2019-02-04 06:29] VITALS: BP 137/63
--- NOTE | 2019-02-04 07:10 | NUR ---
MS RN OPENING NOTE RECEIVED REPORT FROM PM NURSE/PATIENT AXOX3 MALAYSIAN AMERICAN SPEAKING.FAMILY DONT WANT TO REVEAL HIS DIAGNOSIS TO THE PATIENT.IV ON GABRIELE AND LW.INTACT AND PATENT.ON O2 2L VIA NASAL CANULA.NO SOB NO DISTRESS NOTED.BED IS LOW AND IN LOCKED POSITION.CALL LIGHT IN REACH.SRX3.WILL CONTINUE TO MONITOR THE PATIENT
[2019-02-04] MEDS: ENSURE ENLIVE 237 ML LIQUID (VANILLA) PO SCH (07:46)
[2019-02-04 08:00] VITALS: BP 118/59
[2019-02-04 08:10] LABS: BASOPHILS # (AUTO) 0.1 /CMM (0.0-0.2); BASOPHILS % (AUTO) 1.1 % (0.0-2.0); EOSINOPHILS % (AUTO) 1.8 % (0.0-6.0); HEMATOCRIT 26 % (33-45); HEMOGLOBIN 8.2 g/dL (11.5-14.8); LYMPHOCYTES # (AUTO) 1.2 /CMM (0.8-4.8); LYMPHOCYTES % (AUTO) 11.5 % (20.0-44.0); MEAN CORPUSCULAR HGB CONC 32 g/dl (31.0-36.0); MEAN CORPUSCULAR VOLUME 81 fL (82-100); MONOCYTES # (AUTO) 0.7 /CMM (0.1-1.30); MONOCYTES % (AUTO) 7.2 % (2.0-12.0); NEUTROPHILS % (AUTO) 78.4 % (43.0-81.0); PLATELET COUNT (AUTO) 508 /CMM (150-450); RED BLOOD CELL COUNT(AUTO) 3.19 MIL/uL (4.0-5.2); WHITE BLOOD COUNT (AUTO) 10.2 K/uL (4.3-11.0)
[2019-02-04] MEDS: ASPIRIN 81 MG TAB.CHEW PO SCH (08:50)
[2019-02-04] MEDS: FENOFIBRATE NANOCRYS (145 MG) 145 MG TABLET PO SCH (08:50)
[2019-02-04] MEDS: ACIDOPHILUS/BULGARICUS 1 EACH TAB.CHEW PO SCH (08:50)
[2019-02-04] MEDS: SENNOSIDES 8.6 MG TABLET PO SCH (08:50)
[2019-02-04] MEDS: hydrALAZINE HCL 25 MG TABLET PO SCH (08:51)
[2019-02-04] MEDS: AMLODIPINE BESYLATE 5 MG TABLET PO SCH (08:51)
[2019-02-04] MEDS: FERROUS SULFATE (325 MG) 325 MG/TAB TABLET PO SCH (08:51)
[2019-02-04] MEDS: METOPROLOL TARTRATE 25 MG TABLET PO SCH (10:01)
[2019-02-04] MEDS: LOSARTAN POTASSIUM 50 MG TABLET PO SCH (10:01)
[2019-02-04] MEDS ORDERED: Hydrocodone/Apap 10/325MG PO (10:17)
[2019-02-04] MEDS ORDERED: FENT1PAT2 TD (10:17)
[2019-02-04] MEDS ORDERED: PHEN28OI6 RC (10:23)
[2019-02-04 10:25] LABS: CARBON DIOXIDE 17 mmol/L (21-32); CHLORIDE 107 mmol/L (98-107); CREATININE 1.3 mg/dL (0.6-1.3); GLUCOSE 71 mg/dL (74-106); POTASSIUM 5.3 mmol/L (3.5-5.1); SODIUM SERUM 139 mmol/L (136-145); UREA NITROGEN, BLOOD 52 mg/dL (7-18)
[2019-02-04 10:56] LABS: CALCIUM, SERUM 8.5 mg/dL (8.5-10.1)
[2019-02-04 12:00] VITALS: BP 106/46
[2019-02-04] MEDS ORDERED: FUROSEMIDE 20 MG/2 ML VIAL IV ONE (13:00)
--- NOTE | 2019-02-04 13:00 | NUR ---
MS RN NOTE SEEN BY CIRCUS PERFORMER ALVARO,UPDATED PATIENT CONDITION WITH LABS.GOT NEW ORDERS.OK TO GIVE NORCO AND DILAUDID NOW.
--- NOTE | 2019-02-04 13:40 | NUR ---
MS LABORER BITUMINOUS PAVING NOTE PATIENT D/C [facility] IN STABLE CONDITION.CHINESE TRISTANIAN SPEAKING.AXOX3.NO SOB NO DISTRESS NOTED.ON O2 2L VIA NASAL CANULA.IV ON GABRIELE MIDLINE.REMOVED LW IV .PRESSURE DRESSING APPLIED.EXIT CARE GIVEN TO DAUGHTER MARILOU.SIGNED PAPER WORK.REPORT GIVEN TO LEONCIO AT SNF.BELONGING NOT PRESENT AT BEDSIDE.DAUGHTER MARILOU AWARE.TOLD THAT SHE WILL ASK HER SISTER ,SHE MIGHT TOOK TO HOME.GAVE ALL PAPER WORK WITH PRESCRIPTION.PATIENT PICKED UP BY EMT.
--- NOTE | 2019-02-04 13:45 | NUR ---
MS RN NOTE PATIENT TRANSFER RECORD FAXED TO FACILITY.[phone] PRESCRIPTION GIVEN.DAUGHTER AT BED SIDE AT THE TIME OF DISCHARGE.
[2019-02-04] MEDS ORDERED: FENTANYL TD PATCH (12 MCG/HR) 12 MCG/HR PATCH.TD72 TD SCH (21:00)
== END 2019-02-04 13:40 | DRG 189 ==
LOC: ER 20:58 → TELE1 01-30 00:24 → MEDSG1 01-30 09:40
PROVIDERS: ADMIT Internal Medicine; ATTEND Nurse Practitioner Acute Care
PROC: 30233N1 Transfusion of Nonautologous Red Blood Cells into Peripheral Vein, Percutaneous Approach (ICD-10-PCS; principal; 2019-02-03)
DX: J96.01 Acute respiratory failure with hypoxia (principal); N17.0 Acute kidney failure with tubular necrosis; E43 Unspecified severe protein-calorie malnutrition; I20.0 Unstable angina; E87.1 Hypo-osmolality and hyponatremia; E66.9 Obesity, unspecified; Z85.07 Personal history of malignant neoplasm of pancreas; Z86.718 Personal history of other venous thrombosis and embolism; K21.9 Gastro-esophageal reflux disease without esophagitis; E87.5 Hyperkalemia; D63.8 Anemia in other chronic diseases classified elsewhere; I10 Essential (primary) hypertension; E88.09 Other disorders of plasma-protein metabolism, not elsewhere classified; R19.5 Other fecal abnormalities; K59.00 Constipation, unspecified; Z68.32 Body mass index [BMI] 32.0-32.9, adult
CPT/HCPCS: 36415; 71045-TC; 76700-TC; 80048-TC; 80061-TC; 80076-TC; 81000-TC; 82272-TC; 83690-TC; 83735-TC; 84100-TC; 84443-TC; 84484-TC; 85025-TC; 86850-TC; 86921-TC; 87081-TC; 87086-TC; 93307-TC; G0378; J1170; J1885; J1940; J2270; J2405; J7030; J7040; J7050; P9016-BL; Q9967